=== PATIENT | female | born 1965 | race Caucasian/White ===

== ENCOUNTER → 2025-04-25 09:46 | Outpatient (BNVA) | payer OTHER, SELFPAY | PROVIDERS: Visit Provider Emergency Medicine | DX: S80.01XA Contusion of right knee, initial encounter (principal); S80.02XA Contusion of left knee, initial encounter; S39.012A Strain of muscle, fascia and tendon of lower back, initial encounter; W18.39XA Other fall on same level, initial encounter; Z02.79 Encounter for issue of other medical certificate | CPT/HCPCS: 73564; 93971; 99204 ==